=== PATIENT | female | born 1945 | race Caucasian/White ===

== ENCOUNTER → 2017-05-22 | Outpatient (CLI) | payer MEDICARE ==
--- NOTE | 2017-05-22 09:46 | US ---
EXAMINATION TYPE: US kidneys/renal and bladder DATE OF EXAM: 05/22/2017 COMPARISON: Prior in PACS CLINICAL HISTORY: N18.2 Chronic Kidney Disease Stage II. EXAM MEASUREMENTS: Right Kidney: 8.4 x 4.5 x 3.8 cm Left Kidney: 8.1 x 4.7 x 3.9 cm Right Kidney: Measuring small, Hypoechoic area visualized upper pole measuring 1.0 x 1.0 x 1.0 cm, pr obable cyst as there is a well-defined posterior wall. No distinct hydronephrosis although there is m ild pelvic caliectasis. Left Kidney: Measuring small, No hydronephrosis or masses seen Bladder: wnl Bilateral Jets seen: Yes IMPRESSION: No evidence of hydronephrosis or nephrolithiasis. Cortical medullary differentiation is maintained. P robable right upper pole 1.0 cm renal cyst.
== END | disposition home or self-care (01) ==
LOC: RADUSWWP 09:07
PROVIDERS: ATTEND Family Medicine
DX: N18.2 Chronic kidney disease, stage 2 (mild) (principal)
CPT/HCPCS: 76770

== ENCOUNTER → 2018-12-10 | Outpatient (CLI) | payer MEDICARE, OTHER ==
--- NOTE | 2018-12-10 10:39 | FL ---
EXAMINATION TYPE: FL barium swallow DATE OF EXAM: 12/10/2018 CLINICAL HISTORY: Dysphasia TECHNIQUE: A double contrast esophagram is performed utilizing air and barium. A total of 70 second s of fluoroscopic time was utilized during procedure. Approximately 15 images submitted. COMPARISON: None FINDINGS: The esophagus shows normal motility and emptying into the stomach. No evidence of hiatal h ernia or stricture noted. No significant gastroesophageal reflux was seen during real time performanc e of this study. There is posterior impression of the esophagus due to hypertrophic spurring and dege nerative disc disease. IMPRESSION: 1. There is posterior impression of the esophagus secondary to hypertrophic spurring and degenerative disc disease of the cervical spine.
== END | disposition home or self-care (01) ==
LOC: RADFLWHC 09:51
PROVIDERS: ATTEND Family Medicine
DX: R13.10 Dysphagia, unspecified (principal); Z88.8 Allergy status to other drugs, medicaments and biological substances; Z91.013 Allergy to seafood
CPT/HCPCS: 74220

== ENCOUNTER → 2019-01-28 | Outpatient (CLI) | payer MEDICARE ==
--- NOTE | 2019-01-28 12:39 | FL ---
EXAMINATION TYPE: FL barium swallow w video DATE OF EXAM: 01/28/2019 MODIFIED SWALLOW / DEGLUTITION STUDY CLINICAL HISTORY: Dysphagia. TECHNIQUE: Deglutition study is performed utilizing thin liquid barium, barium thick pudding, and ba rium coated cracker. 1 minute and 10 seconds of fluoroscopy time was utilized with 1 fluoroscopic juancho ges saved. COMPARISON: None. FINDINGS: The oral and pharyngeal phases show satisfactory initiation and propagation with all modali ties tested. Normal mastication is seen with solid modalities tested. There is no evidence of penet ration or aspiration with any modality tested. No significant pharyngeal residue was appreciated. At the end of the examination frontal view was performed as some residual contrast is noted in the uppe r esophagus. This demonstrated a smooth tapering distal esophageal stricture at the gastroesophageal junction that was incomplete. This results in delayed/increased transit time and severe intraesophage al reflux. IMPRESSION: 1. Normal deglutition study. Please refer to speech therapist notes for further details if necessary . 2. Incomplete smoothly marginated distal esophageal stricture at the gastroesophageal junction. Furth er evaluation with esophagram or direct visualization with endoscopy could be performed as this resul ts in severe intraesophageal reflux and delayed transit.
== END | disposition home or self-care (01) ==
LOC: RADFLMAIN 11:52
PROVIDERS: ATTEND Otolaryngology
DX: K22.2 Esophageal obstruction (principal)
CPT/HCPCS: 74230

== ENCOUNTER 2019-02-05 01:18 | Emergency (ER) | payer MEDICARE ==
[2019-02-05 01:28] VITALS: RESP 18
[2019-02-05] MEDS ORDERED: AZITHROMYCIN 500 MG TAB PO STA (01:51)
[2019-02-05 02:06] LABS: Basophils # (A) 0.1 k/uL (0-0.2); Basophils % (A) 1 %; Eosinophils # (A) 0.2 k/uL (0-0.7); Eosinophils % (A) 3 %; HCT 42.9 % (34.0-46.0); HGB 13.8 gm/dL (11.4-16.0); Lymphocytes # (A) 1.5 k/uL (1.0-4.8); Lymphocytes % (A) 23 %; MCH 28.8 pg (25.0-35.0); MCHC 32.2 g/dL (31.0-37.0); MCV 89.5 fL (80.0-100.0); Mean Platelet Volume 6.9; Monocytes # (A) 0.2 k/uL (0-1.0); Monocytes % (A) 4 %; Neutrophils # (A) 4.2 k/uL (1.3-7.7); Neutrophils % (A) 67 %; Platelet Count 308 k/uL (150-450); RDW 15.2 % (11.5-15.5); WBC 6.3 k/uL (3.8-10.6)
--- NOTE | 2019-02-05 02:10 | XR ---
EXAM: XR Left Shoulder Complete, 2 or More Views CLINICAL HISTORY: ITS.REASON XR Reason: Pain TECHNIQUE: Two or more views of the left shoulder. COMPARISON: No relevant prior studies available. FINDINGS: Bones/joints: Unremarkable. No acute fracture. No dislocation. Soft tissues: Unremarkable. IMPRESSION: Normal left shoulder x-rays.
--- NOTE | 2019-02-05 02:10 | XR ---
EXAM: XR Chest, 2 Views CLINICAL HISTORY: ITS.REASON XR Reason: Pain TECHNIQUE: Frontal and lateral views of the chest. COMPARISON: No relevant prior studies available. FINDINGS: Lungs: Unremarkable. No consolidation. Pleural space: Unremarkable. No pneumothorax. Heart: No suspicious enlargement. Mediastinum: Unremarkable. Bones/joints: No acute fracture. IMPRESSION: No acute findings.
[2019-02-05] MEDS ORDERED: predniSONE 50 MG TAB PO STA (02:24)
[2019-02-05 02:26] LABS: Albumin 4.7 g/dL (3.5-5.0); Potassium 4.2 mmol/L (3.5-5.1); Total Bilirubin 0.8 mg/dL (0.2-1.3); Total Protein 7.6 g/dL (6.3-8.2)
--- NOTE | 2019-02-05 02:59 | ED ---
General Adult HPI - General Source: EMS, RN notes reviewed, old records reviewed Mode of arrival: EMS <Suresh Felder - Last Filed: 02/05/19 03:03> <Michela Martinez - Last Filed: 02/08/19 06:26> - General Chief complaint: Upper Respiratory Infection Stated complaint: URI Time Seen by Provider: 02/05/19 01:20 - History of Present Illness Initial comments: 73-year-old female patient presents to ED with chief complaint of one day of pro ductive cough. Patient also reports a waxing waning mild fever which resolved without intervention. Patient denies any chest pain shortness of breath abdominal pain nausea vomiting or diarrhea. Patient has secondary complaint of left shoulder pain. Patient reports that she has a chronic left shoulder pain since a fall off a ladder many years ago. Patient reports that yesterday she was folding a heavy blanket and strained her left shoulder. Patient reports that she has pain like an electric shock in shoulder periodically. Pt denies any shoulder pain at this time. Denies any other complaints at this time. Patient is a cigarette smoker, denies a known history of COPD. Systemic: Pt denies fatigue, fever/chills, rash. Pt denies weakness, night sweats, weight loss. Neuro: Pt denies headache, visual disturbances, syncope or pre-syncope. HEENT: Pt denies ocular discharge or irritation, otalgia, rhinorrhea, pharyngitis or notable lymphadenopathy. Cardiopulmonary: Pt denies chest pain, SOB, heart palpitations, dyspnea on exertion. Abdominal/GI: Pt denies abdominal pain, n/v/d. : Pt denies dysuria, burning w/ urination, frequency/urgency. Denies new onset urinary or bowel incontinence. MSK: Pt denies myalgia, loss of strength or function in extremities. Neuro: Pt denies new onset weakness, paresthesias. (Suresh Felder) - Related Data Home Medications Medication Instructions Recorded Confirmed Escitalopram Oxalate [Lexapro] 10 mg PO DAILY 11/15/15 09/24/16 Levothyroxine Sodium 88 mcg PO DAILY 11/15/15 09/24/16 Potassium Chloride [Klor-Con 20] 60 meq PO DAILY 11/15/15 09/24/16 Simvastatin 40 mg PO HS 11/15/15 09/24/16 Venlafaxine HCl [Venlafaxine HCl 150 mg PO DAILY 11/15/15 09/24/16 ER] Calcitriol 0.25 mcg PO TU 09/24/16 09/24/16 Estazolam 2 mg PO DAILY 09/24/16 09/24/16 Morphine Sulfate ER [Ms Contin 30 mg PO Q12HR 09/24/16 09/24/16 30Mg] Previous Rx's Medication Instructions Recorded Albuterol Inhaler [Ventolin Hfa 1 - 2 puff INHALATION Q4-6H PRN #1 02/05/19 Inhaler] inhaler Azithromycin [Zithromax Z-pack] 0 mg PO DIRECTED #6 tab 02/05/19 predniSONE 50 mg PO DAILY #4 tab 02/05/19 Allergies Allergy/AdvReac Type Severity Reaction Status Date / Time shellfish derived [Shellfish] Allergy Unknown Verified 09/24/16 14:32 metoprolol tartrate AdvReac Chest Pain Unverified 09/24/16 14:32 [From Lopressor] Sulfa (Sulfonamide AdvReac Unknown Verified 09/24/16 14:32 Antibiotics) Review of Systems ROS Other: All systems not noted in ROS Statement are negative. <Suresh Felder - Last Filed: 02/05/19 03:03> ROS Other: All systems not noted in ROS Statement are negative. <Michela Martinez - Last Filed: 02/08/19 06:26> ROS Statement: Those systems with pertinent positive or pertinent negative responses have been documented in the HPI. Past Medical History Past Medical History: Asthma, Coronary Artery Disease (CAD), Eye Disorder, Fibromyalgia, Hearing Disorder / Deafness, Hyperlipidemia, Memory Impairment, Myocardial Infarction (AL), Seizure Disorder, Sleep Apnea/CPAP/BIPAP, Thyroid Disorder Additional Past Medical History / Comment(s): ARTHRITIS/FEBRILE SEIZURES/CKD/MS/REGIONAL PAIN SYNDROME/LUPUS/SPINAL STENOSIS/BONE SPURS/MS IN 'SPINE AT THORAX' Last Myocardial Infarction Date:: 1998 History of Any Multi-Drug Resistant Organisms: MRSA Date of last positivie culture/infection: CANT REMEMBER MDRO Source:: UNKNOWN Past Surgical History: Appendectomy, Bladder Surgery, Bowel Resection, Heart Catheterization, Hernia Repair, Orthopedic Surgery, Tonsillectomy Additional Past Surgical History / Comment(s): HX OOPHERECTOMY Past Anesthesia/Blood Transfusion Reactions: No Reported Reaction Additional Past Anesthesia/Blood Transfusion Reaction / Comment(s): HX BLOOD PHERESIS/WILL REFUSE SPINAL ANESTHESIA Past Psychological History: Anxiety, Depression, Panic Disorder Smoking Status: Current some day smoker Past Alcohol Use History: None Reported Past Drug Use History: None Reported - Past Family History Father Family Medical History: Coronary Artery Disease (CAD) Mother Family Medical History: Cancer <Suresh Felder - Last Filed: 02/05/19 03:03> General Exam <Suresh Felder - Last Filed: 02/05/19 03:03> - General Exam Comments Initial Comments: Constitutional: NAD, AOX3, Pt has pleasant affect. HEENT: NC/AT, trachea midline, neck supple, no lymphadenopathy. Posterior pharynx non erythematous, without exudates. External ears appear normal, without discharge. Mucous membranes moist. Eyes PERRLA, EOM intact. There is no scleral icterus. No pallor noted. Cardiopulmonary: RRR, no murmurs, rubs or gallops, no JVD noted. Lungs CTAB in anterior and posterior mcdonald. No peripheral edema. Abdominal exam: Abdomen soft and non-distended. Abdomen non-tender to palpation in all 4 quadrants. Bowel sounds active in LLQ. No hepatosplenomegaly. No ecchymosis Neuro: CN II-XII grossly intact. No nuchal rigidity. No raccon eyes, no suarez sign, no hemotympanum. No cervical spinal tenderness. MSK: Full active ROM in shoulder, no tenderness to palpation, no ecchymosis. No posterior calf tenderness bilaterally, homans sign negative bilaterally. Posterior tibialis and radial pulse +2 bilaterally. Sensation intact in upper and lower extremities. Full active ROM in upper and lower extremities, 5/5 stregnth. (Suresh Felder) Course Vital Signs 02/05/19 02/05/19 02/05/19 01:21 01:46 03:47 Temperature 99.3 F 98.8 F Pulse Rate 90 78 Respiratory 18 18 18 Rate Blood Pressure 149/95 145/88 O2 Sat by Pulse 96 98 Oximetry Medical Decision Making - Lab Data Result diagrams: 02/05/19 02:00 02/05/19 02:00 <Suresh Felder - Last Filed: 02/05/19 03:03> - Lab Data Result diagrams: 02/05/19 02:00 02/05/19 02:00 <Michela Martinez - Last Filed: 02/08/19 06:26> - Medical Decision Making 73-year-old female patient presents to ED with chief complaint of one day of productive cough. Patient also reports a waxing waning mild fever which resolved without intervention. Patient denies any chest pain shortness of breath abdominal pain nausea vomiting or diarrhea. Patient has secondary complaint of left shoulder pain. Patient reports that she has a chronic left shoulder pain since a fall off a ladder many years ago. Patient reports that yesterday she was folding a heavy blanket and strained her left shoulder. Patient reports that she has mild pain with range of motion. Denies any other complaints at this time. Patient is a cigarette smoker, denies a known history of COPD. patient vital signs stable, afebrile. Physical exam displayed no acute pathology. Laboratory investigations reveal non-impressive CBC, CMP. Painful shoulder and chest x-ray displayed no acute process. Patient will be treated for bronchitis. Patient will be prescribed prophylactic azithromycin. Patient administered 1 dose of prednisone and azithromycin ED course of discharge with prednisone, azithromycin, albuterol inhaler. Patient will be given orthopedic referral if left shoulder pain continues. Case discussed with Dr. Martinez. (Suresh Felder) I was available for consultation in the emergency department. The history and physical exam were done by the midlevel provider. I was consulted for this patient's care. I reviewed the case with the midlevel provider and based on their presentation of the patient, I agree with the assessment, medical decision making and plan of care as documented. Chart was dictated using [employer] dictation software. Attempts were made to correct any dictation errors however some typographical errors may persist. (Michela Martinez) - Lab Data Lab Results 02/05/19 02/05/19 Range/Units 02:00 02:00 WBC 6.3 (3.8-10.6) k/uL RBC 4.80 (3.80-5.40) m/uL Hgb 13.8 (11.4-16.0) gm/dL Hct 42.9 (34.0-46.0) % MCV 89.5 (80.0-100.0) fL MCH 28.8 (25.0-35.0) pg MCHC 32.2 (31.0-37.0) g/dL RDW 15.2 (11.5-15.5) % Plt Count 308 (150-450) k/uL Neutrophils % 67 % Lymphocytes % 23 % Monocytes % 4 % Eosinophils % 3 % Basophils % 1 % Neutrophils # 4.2 (1.3-7.7) k/uL Lymphocytes # 1.5 (1.0-4.8) k/uL Monocytes # 0.2 (0-1.0) k/uL Eosinophils # 0.2 (0-0.7) k/uL Basophils # 0.1 (0-0.2) k/uL Sodium 139 (137-145) mmol/L Potassium 4.2 (3.5-5.1) mmol/L Chloride 107 (98-107) mmol/L Carbon Dioxide 25 (22-30) mmol/L Anion Gap 7 mmol/L BUN 14 (7-17) mg/dL Creatinine 1.04 (0.52-1.04) mg/dL Est GFR (CKD-EPI)AfAm 63 (>60 ml/min/1.73 sqM) Est GFR (CKD-EPI)NonAf 54 (>60 ml/min/1.73 sqM) Glucose 104 H (74-99) mg/dL Calcium 10.0 (8.4-10.2) mg/dL Total Bilirubin 0.8 (0.2-1.3) mg/dL AST 35 (14-36) U/L ALT 21 (9-52) U/L Alkaline Phosphatase 101 (38-126) U/L Total Protein 7.6 (6.3-8.2) g/dL Albumin 4.7 (3.5-5.0) g/dL Disposition Is patient prescribed a controlled substance at d/c from ED?: No <Suresh Felder - Last Filed: 02/05/19 03:03> <Michela Martinez - Last Filed: 02/08/19 06:26> Clinical Impression: Bronchitis Disposition: HOME SELF-CARE Condition: Stable Instructions (If sedation given, give patient instructions): Acute Bronchitis (ED) Additional Instructions: Patient to adhere to previously discussed treatment plan and will take medication(s) as directed. Patient to follow up with PCP in 1-2 days. Patient to return to ED if symptoms do not improve. Take medications as directed. Follow up with primary care provider in 1-2 days. Follow up with orthopedic consult if shoulder pain persists. Prescriptions: predniSONE 50 mg PO DAILY #4 tab Albuterol Inhaler [Ventolin Hfa Inhaler] 1 - 2 puff INHALATION Q4-6H PRN #1 inhaler PRN Reason: Cough Azithromycin [Zithromax Z-pack] 0 mg PO DIRECTED #6 tab Referrals: Shine Carballo MD [Primary Care Provider] - 1-2 days Víctor Lockwood DO [Doctor of Osteopathic Medicine] - 1-2 days
[2019-02-05 06:03] VITALS: BP 145/88; PULSE 78; TEMP 98.8
== END 2019-02-05 03:49 | disposition home or self-care (01) ==
LOC: EC 01:18
DX: J40 Bronchitis, not specified as acute or chronic (principal); M25.512 Pain in left shoulder; G89.29 Other chronic pain; E78.5 Hyperlipidemia, unspecified; I25.10 Atherosclerotic heart disease of native coronary artery without angina pectoris; H91.90 Unspecified hearing loss, unspecified ear; I25.2 Old myocardial infarction; G35 Multiple sclerosis; E07.9 Disorder of thyroid, unspecified; F39 Unspecified mood [affective] disorder; F41.0 Panic disorder [episodic paroxysmal anxiety]; F17.210 Nicotine dependence, cigarettes, uncomplicated; Z88.2 Allergy status to sulfonamides; Z88.8 Allergy status to other drugs, medicaments and biological substances; Z91.013 Allergy to seafood; Z79.890 Hormone replacement therapy; Z79.891 Long term (current) use of opiate analgesic; Z79.899 Other long term (current) drug therapy; Z86.14 Personal history of Methicillin resistant Staphylococcus aureus infection; Z90.89 Acquired absence of other organs; Z95.818 Presence of other cardiac implants and grafts
CPT/HCPCS: 36415; 80053; 85025; 73030; 71046; 99284; J7512

== ENCOUNTER → 2019-04-05 | Outpatient (CLI) | payer MEDICARE ==
--- NOTE | 2019-04-05 15:12 | US ---
EXAMINATION TYPE: US kidneys/renal and bladder DATE OF EXAM: 04/05/2019 COMPARISON: US dated 05/22/2017 CLINICAL HISTORY: N18.2 CKD stage 2. Chronic kidney disease EXAM MEASUREMENTS: Right Kidney: 8.5 x 4.5 x 4.1 cm Left Kidney: 8.6 x 4.6 x 4.1 cm Right Kidney: Small in size as visualized on prior, cyst upper pole= 1.3 x 1.1 x 1.2 cm as visualized on prior, and cyst lower pole= 1.2 x 1.2 x 1.2 cm Left Kidney: Small in size as visualized on prior, cyst mid= 1.6 x 1.4 x 1.4 cm, and cyst lower pole= 1.4 x 1.0 x 1.3 cm Bladder: wnl Bilateral Jets seen: No There is no evidence for hydronephrosis at this point in time. No nephrolithiasis is seen. No suspi cious masses are identified. The urinary bladder is anechoic. Bilateral ureteral jets are not seen. IMPRESSION: No hydronephrosis or nephrolithiasis. Bilateral cortical renal cysts appear benign.
== END | disposition home or self-care (01) ==
LOC: RADUSWWP 14:15
PROVIDERS: ATTEND Internal Medicine Nephrology
DX: N28.1 Cyst of kidney, acquired (principal); N18.2 Chronic kidney disease, stage 2 (mild)
CPT/HCPCS: 76770

== ENCOUNTER → 2019-06-08 | Outpatient (CLI) | payer MEDICARE ==
--- NOTE | 2019-06-08 14:12 | XR ---
EXAMINATION TYPE: XR shoulder complete LT DATE OF EXAM: 06/08/2019 CLINICAL HISTORY: Left shoulder pain after fall a few months ago TECHNIQUE: Three views of the left shoulder are obtained. COMPARISON: None. FINDINGS: There is no acute fracture/dislocation evident in the left shoulder. The acromioclavicula r and glenohumeral joint spaces appear aligned. Mild acromio clavicular arthropathy on the left. The visualized ribs are intact and unremarkable. IMPRESSION: There is no acute fracture or dislocation in the left shoulder. Mild left acromioclavicu lar arthropathy.
== END | disposition home or self-care (01) ==
LOC: RADXRMAIN 12:30
PROVIDERS: ATTEND Family Medicine
DX: M19.012 Primary osteoarthritis, left shoulder (principal)

== ENCOUNTER 2019-08-31 11:58 | Day surgery (SDC) | payer MEDICARE ==
[2019-08-13 10:21] VITALS: BMI 23.0
[~2019-08-31 11:58] MED LIST: LACTATED RINGERS 1,000 ML IV SCH; LIDOCAINE 1% 20 ML VIAL (10MG/ML) FOR IV START INTRADERMA PRN
[2019-08-31 13:56] VITALS: RESP 16
[2019-08-31 13:59] VITALS: TEMP 99
[2019-08-31] MEDS ORDERED: LIDOCAINE 1% INJ 10MG/ML (20 ML MDV) ONE (14:30)
[2019-08-31] MEDS ORDERED: PROPOFOL 10 MG/ML 20 ML VIAL IV ONE (14:30)
--- NOTE | 2019-08-31 15:07 | P.PCN ---
Date of Procedure: 08/31/19 Description of Procedure: BRIEF HISTORY: Patient is a 74-year-old female with a medical history significant for intermittent dysphagia. This is been going on long-term over 10 years. She has had episodes of food getting stuck in the past. She has previously had 2 dilations the last approximately 10 years ago. PROCEDURE PERFORMED: Esophagogastroduodenoscopy with biopsy. PREOPERATIVE DIAGNOSIS: Esophageal dysphagia, history of esophageal stricture. ESTIMATED BLOOD LOSS: Minimal. IV sedation per anesthesia. PROCEDURE: After informed consent was obtained, the patient was brought into the endoscopy unit. IV sedation was administered by Anesthesia under continuous monitoring. Initially the Olympus GIF-190 video endoscope was inserted into the mouth. Esophagus intubated without any difficulty. It was gradually advanced into the stomach and duodenum and carefully examined. The bulb and the second part of the duodenum appeared normal, with biopsies taken. The scope at this time was withdrawn to the stomach, adequately insufflated with air, and upon careful examination, mucosa of the antrum, body, cardia and the fundus appeared normal, with some mild scattered erythema in the antrum and body suggestive of mild gastritis is taken. The scope was then withdrawn into the esophagus. The GE junction was located at about 34 cm from the incisors. A hiatal hernia noted. There was a benign-appearing distal esophageal stricture just above the GE junction. The stricture was able to be traversed by the endoscope. The esophagus was dilated serially with a through the scope balloon dilator to 10 mm and 11 mm. The patient tolerated the procedure well. IMPRESSION: 1. Mild gastritis, body, biopsied. 2. Benign-appearing distal esophageal stricture dilated with a [id number] balloon dilator. 3. Duodenal biopsies. RECOMMENDATIONS: The findings of this examination were discussed with the patient in her family. Okay to resume diet. Would recommend dietary measures including soft foods, sitting upright while eating, and sips of water between bites of solid foods. The patient continues to have symptoms and consider repeat EGD with dilation. Could also consider initiation of antacid medications for symptomatically..
[2019-08-31 15:22] VITALS: BP 121/75; PULSE 82
== END 2019-08-31 15:56 | disposition home or self-care (01) ==
LOC: ORWHC2ENDO 11:58
PROVIDERS: ATTEND Internal Medicine
DX: K29.50 Unspecified chronic gastritis without bleeding (principal); K22.2 Esophageal obstruction; K44.9 Diaphragmatic hernia without obstruction or gangrene; I10 Essential (primary) hypertension; I25.10 Atherosclerotic heart disease of native coronary artery without angina pectoris; E78.5 Hyperlipidemia, unspecified; J45.909 Unspecified asthma, uncomplicated; E07.9 Disorder of thyroid, unspecified; N28.9 Disorder of kidney and ureter, unspecified; G47.33 Obstructive sleep apnea (adult) (pediatric); F17.200 Nicotine dependence, unspecified, uncomplicated; M79.7 Fibromyalgia; M19.90 Unspecified osteoarthritis, unspecified site; G35 Multiple sclerosis; M32.9 Systemic lupus erythematosus, unspecified; R56.9 Unspecified convulsions; F32.9 Major depressive disorder, single episode, unspecified; F41.9 Anxiety disorder, unspecified; Z91.013 Allergy to seafood; Z88.2 Allergy status to sulfonamides; Z88.8 Allergy status to other drugs, medicaments and biological substances; Z79.890 Hormone replacement therapy; Z79.899 Other long term (current) drug therapy; Z90.49 Acquired absence of other specified parts of digestive tract; Z82.49 Family history of ischemic heart disease and other diseases of the circulatory system; Z98.890 Other specified postprocedural states; Z95.5 Presence of coronary angioplasty implant and graft
CPT/HCPCS: 43249; 43239; 88305; J2001; J2704; C1726